=== PATIENT | female | born 1930 | race Caucasian/White ===

== ENCOUNTER 2018-12-10 15:26 | Inpatient (IN) | payer OTHER, MEDICAID ==
[~2018-12-10] VITALS: Ht 165.1 cm; Wt 69.9 kg
[~2018-12-10 15:26] MED LIST: ASPI-1159 PO; ATEN-42 PO; DONE5TAB33 PO; HYDR25TA PO; LOSA100T14 PO; LOVA40TA73 PO; MEMA10TA2 PO
[2018-12-10] MEDS ORDERED: SODIUM CHLORIDE 0.9% 500 ML IV ONE (15:56)
[2018-12-10] MEDS ORDERED: DEXT 5%/0.45% NACL 1000ML 1,000 ML IV ONE (15:56)
[2018-12-10 16:37] LABS: BASOPHILS % 0.6 % (0.0-2.0); EOSINOPHILS % 4.7 % (0.0-5.0); HEMATOCRIT. 35.1 % (36.0-48.0); HEMOGLOBIN. 11.8 g/dL (12.0-16.0); LYMPHOCYTES % 28.2 % (20.0-50.0); MEAN CORPUSCULAR HEMOGLOBIN 32.3 pg (28.0-32.0); MEAN CORPUSCULAR VOLUME 95.7 fL (81.0-99.0); MONOCYTES % 7.5 % (2.0-8.0); PLATELET 323 x1000/uL (130-400); RED BLOOD CELL COUNT 3.67 mill/uL (4.2-5.4); RED CELL DISTRIBUTION WIDTH 14.1 % (11.6-14.6)
[2018-12-10 16:42] LABS: CHLORIDE 106 mEq/L (98-107)
[2018-12-10 16:50] LABS: CREATINE KINASE 81 IU/L (26-192)
[2018-12-10 16:53] LABS: CREATINE KINASE MB FRACTION 2.2 ng/mL (0.5-3.6)
[2018-12-10] MEDS ORDERED: LEVOFLOXACIN 500MG PREMIX 100 ML IV ONE (17:15)
[2018-12-10 18:57] LABS: CLARITY URINE CLEAR (CLEAR); COLOR URINE YELLOW (YELLOW); KETONES URINE NEGATIVE (NEGATIVE); LEUKOCYTE ESTERASE URINE 3+ (NEGATIVE); NITRITE URINE NEGATIVE (NEGATIVE); OCCULT BLOOD URINE TRACE (NEGATIVE); PH URINE 5.5 (4.5-8.0); PROTEIN URINE NEGATIVE (NEGATIVE); UROBILINOGEN URINE 0.2 E.U./dL (0.2-1.0)
[2018-12-10 22:30] VITALS: BP 123/100
[2018-12-11] VITALS: BP 148/57
[2018-12-11 04:00] VITALS: BP 135/69
[2018-12-11] MEDS ORDERED: ATOR10TA PO (04:18)
[2018-12-11] MEDS ORDERED: CITA10SO PO (04:21)
[2018-12-11 06:48] LABS: BASOPHILS % 0.6 % (0.0-2.0); EOSINOPHILS % 3.7 % (0.0-5.0); HEMATOCRIT. 30.3 % (36.0-48.0); HEMOGLOBIN. 10.3 g/dL (12.0-16.0); LYMPHOCYTES % 34.5 % (20.0-50.0); MEAN CORPUSCULAR HEMOGLOBIN 32.4 pg (28.0-32.0); MEAN CORPUSCULAR VOLUME 94.8 fL (81.0-99.0); MEAN PLATELET VOLUME 7.8 fl (7.4-10.4); NEUTROPHILS % 51.2 % (40.0-76.0); PLATELET 273 x1000/uL (130-400); RED BLOOD CELL COUNT 3.19 mill/uL (4.2-5.4); RED CELL DISTRIBUTION WIDTH 13.5 % (11.6-14.6)
[2018-12-11 07:06] LABS: CHLORIDE 111 mEq/L (98-107)
[2018-12-11 07:22] LABS: CREATINE KINASE 185 IU/L (26-192); LDL CHOLESTEROL 87 mg/dL (5-100)
[2018-12-11 07:24] LABS: HDL CHOLESTEROL 42 mg/dL (40-59)
[2018-12-11] MEDS ORDERED: DEXTROSE 50% WATER 50ML SYRINGE IV PRN ×3 (07:45→12:15)
[2018-12-11 08:00] VITALS: BP 118/51
[2018-12-11] MEDS: LOSARTAN POTASSIUM 50 MG TABLET PO SCH (08:09)
[2018-12-11] MEDS ORDERED: LEVOFLOXACIN 500MG PREMIX 100 ML IV SCH (09:00)
[2018-12-11] MEDS ORDERED: DONEPEZIL HCL 5MG TABLET PO SCH (09:00)
[2018-12-11] MEDS ORDERED: MEMANTINE HCL 10MG TABLET PO SCH (09:00)
[2018-12-11 12:00] VITALS: BP 115/79
[2018-12-11] MEDS: BLOOD SUGAR DIAGNOSTIC STRIP TEST SCH ×3 (12:25→21:00)
[2018-12-11] MEDS: INSULIN LISPRO 100 UNITS/ML SUBCUT SCH ×3 (12:34→21:10)
[2018-12-11 16:00] VITALS: BP_SYST 109; BP_SYST 118; BP_DIAS 31; BP_DIAS 40
[2018-12-11] MEDS: SULFACETAMIDE SODIUM 10% OPHTH DROPS 15ML RIGHTEYE SCH ×2 (16:53→21:02)
[2018-12-11] MEDS ORDERED: BLOOD SUGAR DIAGNOSTIC STRIP TEST SCH (17:10)
[2018-12-11] MEDS ORDERED: LEVOFLOXACIN 250MG PREMIX 50 ML IV SCH (18:00)
[2018-12-11 20:00] VITALS: BP 108/59
[2018-12-11] MEDS ORDERED: ENOXAPARIN 40MG/0.4ML SYR SUBCUT SCH (20:00)
[2018-12-12] VITALS: BP 112/60
[2018-12-12 04:00] VITALS: BP 110/52
[2018-12-12] MEDS: INSULIN LISPRO 100 UNITS/ML SUBCUT SCH ×2 (07:09→11:56)
[2018-12-12] MEDS: BLOOD SUGAR DIAGNOSTIC STRIP TEST SCH ×2 (07:09→11:49)
[2018-12-12 08:00] VITALS: BP 127/64
[2018-12-12] MEDS: SULFACETAMIDE SODIUM 10% OPHTH DROPS 15ML RIGHTEYE SCH ×2 (09:11→12:27)
[2018-12-12] MEDS: LOSARTAN POTASSIUM 50 MG TABLET PO SCH (09:11)
[2018-12-12 12:00] VITALS: BP 118/76
[2018-12-12 15:47] VITALS: BP 122/72
[2018-12-12 16:00] VITALS: BP 122/72
== END 2018-12-12 16:40 | DRG 73 ==
LOC: ER 15:26 → 8WST 18:03 → EDBEDREQ 18:08 → ENRESERV 20:19
PROVIDERS: ADMIT Internal Medicine Critical Care Medicine; ATTEND Internal Medicine Critical Care Medicine
DX: G90.8 Other disorders of autonomic nervous system (principal); L89.154 Pressure ulcer of sacral region, stage 4; N39.0 Urinary tract infection, site not specified; F03.90 Unspecified dementia, unspecified severity, without behavioral disturbance, psychotic disturbance, mood disturbance, and anxiety; H10.9 Unspecified conjunctivitis; I11.0 Hypertensive heart disease with heart failure; I50.9 Heart failure, unspecified; F09 Unspecified mental disorder due to known physiological condition; M19.90 Unspecified osteoarthritis, unspecified site; Z66 Do not resuscitate; W18.39XA Other fall on same level, initial encounter; E11.8 Type 2 diabetes mellitus with unspecified complications; Z87.891 Personal history of nicotine dependence; Z79.899 Other long term (current) drug therapy; Y93.89 Activity, other specified; Y92.89 Other specified places as the place of occurrence of the external cause; Y99.8 Other external cause status; Z79.82 Long term (current) use of aspirin; Z80.0 Family history of malignant neoplasm of digestive organs; Z80.1 Family history of malignant neoplasm of trachea, bronchus and lung
CPT/HCPCS: 36415; 71045; 80061; 82550; 82553; 82962; 83036; 83605; 83880; 84443; 84484; 87106; 93005; 96365; 99285; A6261; C1893; J1650; J1815; J1956; J7040; A4315